=== PATIENT | female | born 1955 | race Hispanic/Latino ===

== ENCOUNTER 2017-05-21 09:35 | Outpatient (CLI) | payer BC ==
--- NOTE | 2017-05-21 12:00 | Ultrasound Report ---
Pelvic and transvaginal sonography: History: Pelvic pain. Findings: The uterus measures 8.7 x 3.5 x 5.6 cm. Endometrial thickness 3.2 mm. No fluid in the endometrium. There is a calcified fibroid noted in the anterior aspect of the lower uterine segment measuring 1.5 x 1.3 x 1.7 cm. There is a cervical mass identified measuring 0.7 x 0.4 x 0.7 cm. Right ovary not visualized. Left ovary 2.2 x 1.4 x 2.5 cm. No mass. No fluid in cul-de-sac. Impression: Fibroid uterus. Cervical mass.
== END 2017-05-21 09:36 | disposition home or self-care (01) ==
LOC: SPVWC 09:35
DX: D25.9 Leiomyoma of uterus, unspecified (principal); N88.8 Other specified noninflammatory disorders of cervix uteri
CPT/HCPCS: 76830; 76856